=== PATIENT | female | born 1950 | race Caucasian/White ===

== ENCOUNTER 2017-06-04 08:00 | Outpatient (CLI) | payer OTHER | END 2017-06-04 13:57 | disposition home or self-care (01) | LOC: SONOGRAMA 08:00 → MAMO-SONO 08:15 → SONOGRAMA 13:57 | DX: R10.2 Pelvic and perineal pain (principal) ==

== ENCOUNTER 2017-09-16 09:12 | Emergency (ER) | payer OTHER ==
[~2017-09-16] VITALS: Ht 154.9 cm; Wt 78.0 kg
[2017-09-16] MEDS ORDERED: SYNTHROID50 MCG PO (09:45)
[2017-09-16] MEDS ORDERED: SINGULAIR4 MG (09:46)
== END 2017-09-16 13:48 | disposition home or self-care (01) ==
LOC: ER 09:12
DX: N93.8 Other specified abnormal uterine and vaginal bleeding (principal)

== ENCOUNTER 2017-11-13 08:45 | Day surgery (SDC) | payer OTHER ==
[~2017-11-13 08:45] MED LIST: SINGULAIR4 MG; SYNTHROID50 MCG PO
== END 2017-11-13 16:55 | disposition home or self-care (01) ==
LOC: CIR.AMB 08:45
DX: N84.0 Polyp of corpus uteri (principal); D25.9 Leiomyoma of uterus, unspecified; N95.0 Postmenopausal bleeding; E03.8 Other specified hypothyroidism